=== PATIENT | female | born 1980 | race Caucasian/White ===

== ENCOUNTER 2025-09-09 15:18 | Emergency (ER) | payer OTHER ==
[~2025-09-09] VITALS: Ht 152.4 cm; Wt 98.0 kg
[2025-09-09 15:42] VITALS: O2SAT 100
[2025-09-09 16:33] LABS: BASOPHILS % 0.3 % (0.0-2.0); EOSINOPHILS % 2.2 % (0.0-5.0); HEMATOCRIT. 37.5 % (36.0-48.0); HEMOGLOBIN. 12.4 g/dL (12.0-16.0); LYMPHOCYTES % 17.1 % (20.0-50.0); MEAN PLATELET VOLUME 8.4 fl (7.4-10.4); MONOCYTES % 9.8 % (2.0-8.0); NEUTROPHILS % 70.6 % (40.0-76.0); PLATELET 248 x1000/uL (130-400); RED BLOOD CELL COUNT 4.45 mill/uL (4.2-5.4); RED CELL DISTRIBUTION WIDTH 13.5 % (11.6-14.6)
[2025-09-09 16:45] LABS: CREATININE 0.7 mg/dL (0.6-1.0); UREA NITROGEN BLOOD 11 mg/dL (9-23)
[2025-09-09 16:47] LABS: TROPONIN I HIGH SENSITIVITY < 4 ng/L (3.0-34)
[2025-09-09 17:03] LABS: INR 1.0
[2025-09-09] MEDS: IBUPROFEN 600MG TABLET PO ONE (17:12)
[2025-09-09] MEDS ORDERED: IBUP-1455 MT (17:22)
[2025-09-09 17:51] VITALS: BP 127/74; PULSE 87; RESP 16; TEMP 36.7; O2SAT 99
== END 2025-09-09 17:54 | disposition home or self-care (01) ==
LOC: ER 15:18
DX: R07.9 Chest pain, unspecified (principal); Z90.49 Acquired absence of other specified parts of digestive tract
CPT/HCPCS: 36415; 71045; 80048; 84484; 85025; 93005; 99285